=== PATIENT | male | born 1940 | race Caucasian/White ===

== ENCOUNTER 2016-10-15 15:58 | Emergency (ER) | payer MEDICARE, BC ==
[~2016-10-15 15:58] MED LIST: DULE100A PO; GLIM4TAB PO; IRBE300T46 PO; LEVEMIR SQ; METF-324 PO; ROSU10 PO
[2016-10-15 16:03] VITALS: BP 247/113; PULSE 79; RESP 16; TEMP 97.8; O2SAT 95
[2016-10-15] MEDS ORDERED: CLIN1CAP5 PO (16:25)
[2016-10-15] MEDS ORDERED: DOXY100C PO (16:25)
[2016-10-15] MEDS ORDERED: cloNIDine HCL 0.2 MG TAB PO ONE (16:30)
--- NOTE | 2016-10-15 16:35 | PD ---
HPI Chief Complaint: Skin Problem Time Seen by Provider: 16:11 Travel History International Travel<30 days: No Contact w/Intl Traveler<30days: No Traveled to known affect area: No History of Present Illness HPI This patient complains of a infected area on his back. Duration 3 days. Severity is moderate. Denies fever. No alleviating factors he's had multiple carbuncles on his back before. He has had many that resolve with medication and he is also required formal operative drainage. 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 HERNIA) Cardiac Surgery: No Ear Surgery: No Endocrine Surgery: No Eye Surgery: Yes (RIGHT CATARACT SX) Genitourinary Surgery: No Neurologic Surgery: No Oral Surgery: Yes (PARTIAL LOWER DENTURES) Pacemaker: No Thoracic Surgery: No Other Surgery: Yes (INGUINAL HERNIA REPAIR 85) Social History Alcohol Use: No Tobacco Use: Yes (1 PPD) Substance Use: No Allergies-Medications (Allergen,Severity, Reaction): Coded Allergies: Fish Containing Products (Unverified Allergy, Severe, RASH, 10/15/16) Sulfa (Sulfonamide Antibiotics) (Unverified Allergy, Severe, RASH, 10/15/16 ) diatrizoate meglumine (Unverified Allergy, Severe, HIVES, 10/15/16) gadobenic acid (Unverified Allergy, Severe, HIVES, 10/15/16) gadodiamide (Unverified Allergy, Severe, HIVES, 10/15/16) gadoteridol (Unverified Allergy, Severe, HIVES, 10/15/16) iodixanol (Unverified Allergy, Severe, HIVES, 10/15/16) iohexol (Unverified Allergy, Severe, HIVES, 10/15/16) sitagliptin (Unverified Allergy, Severe, BONE PAIN IMMEDIATELY, 10/15/16) Reported Meds & Prescriptions Reported Meds & Active Scripts Active Clindamycin (Clindamycin HCl) 150 Mg Cap 300 Mg PO Q6H Doxycycline Hyclate 100 Mg Cap 100 Mg PO BID Reported Dulera 120 Act Inh (Mometasone-Formoterol 120 Act Inh) 100-5 Mcg/Act Inh 2 Puff INH BID Metformin (Metformin HCl) 1,000 Mg Tab 1,000 Mg PO BIDPC With meals Crestor (Rosuvastatin Calcium) 10 Mg Tab 10 Mg PO DAILY Avalide (Irbesartan-Hydrochlorothiazide) 300-12.5 Mg Tab 1 Tab PO DAILY Humalog Inj (Insulin Human Lispro) 1,000 Unit/10 Ml Vial 4 Units SQ TIDAC Levemir Inj (Insulin Detemir) 1,000 unit/ 10 ML Vial 26 Units SQ DAILY Do not mix with any other Insulin. Glimepiride 4 Mg Tab 4 Mg PO BIDAC Review of Systems General / Constitutional: No: Fever Eyes: No: Visual changes HENT: No: Headaches Cardiovascular: No: Chest Pain or Discomfort Respiratory: No: Shortness of Breath Gastrointestinal: No: Abdominal Pain Genitourinary: No: Dysuria Musculoskeletal: No: Pain Skin: No Rash Neurologic: No: Weakness Psychiatric: No: Depression Endocrine: No: Polydipsia Hematologic/Lymphatic: No: Easy Bruising Physical Exam Narrative GENERAL: Well-nourished, well-developed patient in no apparent distress. SKIN: Focused skin assessment reveals no rash. Skin is warm and dry. He has a carbuncle in the middle of his back. There is an area of induration with pinpoint tiny pustules. There is some spontaneous drainage. Culture obtained. It is small and about 1.5 cm in diameter HEAD: Atraumatic. Normocephalic. EYES: Pupils equal and round. No scleral icterus. No injection or drainage. ENT: No nasal bleeding or discharge. Mucous membranes pink and moist. NECK: Trachea midline. No JVD. CARDIOVASCULAR: Regular rate and rhythm. No murmur appreciated. RESPIRATORY: No accessory muscle use. Clear to auscultation. Breath sounds equal bilaterally. GASTROINTESTINAL: Abdomen soft, non-tender, nondistended. Hepatic and splenic margins not palpable. MUSCULOSKELETAL: No obvious deformities. No clubbing. No cyanosis. No edema. NEUROLOGICAL: Awake and alert. No obvious cranial nerve deficits. Motor grossly within normal limits. Normal speech. PSYCHIATRIC: Appropriate mood and affect; insight and judgment normal. Data Data Last Documented VS Vital Signs Date Time Temp Pulse Resp B/P Pulse Ox O2 Delivery O2 Flow Rate FiO2 10/15/16 17:25 149/79 10/15/16 16:03 97.8 79 16 95 Orders Clonidine (Catapres) (10/15/16 16:30) Wound Culture And Gram Stain (10/15/16 16:22) [facility] Medical Decision Making Medical Screen Exam Complete: Yes Emergency Medical Condition: Yes Medical Record Reviewed: Yes Differential Diagnosis Carbuncle, abscess, boil Narrative Course I have reviewed the patient's electronic medical record. I don't think this requires invasive treatment at this time Should be followed closely I will start him on doxycycline and clindamycin I obtained a wound culture and Gram stain It is relatively small If initial treatment does not solve the issue he knows he may require operative treatment Patient has prominent accelerated hypertension. Multiple checks have confirmed 239 systolic I gave him a dose of clonidine and we'll reevaluate He is neurologically intact without headache or chest pain Recheck is 149 systolic Diagnosis Primary Impression: Carbuncle Additional Impression: Accelerated hypertension Additional Instructions: Check and record blood pressure daily The patient was advised to follow up with their physician and return if they worsen. Apply warm compresses Med/Other Pt SpecificInfo: Prescription(s) given Scripts Clindamycin 150 Mg [id number] Mg PO Q6H #56 CAP Ref 0 Prov:Boston Padilla MD 10/15/16 Doxycycline Hyclate 100 Mg [id number] Mg PO BID #20 CAP Ref 0 Prov:Boston Padilla MD 10/15/16 Disposition: 01 DISCHARGE HOME Condition: Stable Boston Padilla MD Oct 15, 2016 16:35
[2016-10-15] MEDS ORDERED: ROSU10 PO (16:40)
[2016-10-15] MEDS ORDERED: METF1000 PO (16:40)
[2016-10-15] MEDS ORDERED: DULE100A INH (16:40)
[2016-10-15] MEDS ORDERED: IRBE300T46 PO (16:40)
[2016-10-15] MEDS ORDERED: GLIM4TAB PO (16:40)
[2016-10-15] MEDS ORDERED: HUMALOG SQ (16:40)
[2016-10-15] MEDS ORDERED: LEVEMIR SQ (16:40)
[2016-10-15 17:25] VITALS: BP 149/79
== END 2016-10-15 17:26 | disposition home or self-care (01) ==
LOC: PHED 15:58
DX: L02.232 Carbuncle of back [any part, except buttock and flank] (principal); I10 Essential (primary) hypertension; E11.9 Type 2 diabetes mellitus without complications; F17.200 Nicotine dependence, unspecified, uncomplicated; Z79.4 Long term (current) use of insulin; Z87.09 Personal history of other diseases of the respiratory system; Z85.828 Personal history of other malignant neoplasm of skin; Z86.79 Personal history of other diseases of the circulatory system; Z87.19 Personal history of other diseases of the digestive system
CPT/HCPCS: 86403; 87070; 87205; 99284

== ENCOUNTER 2017-02-17 14:51 | Observation (INO) | payer MEDICARE, BC ==
[~2017-02-17] VITALS: Ht 177.8 cm; Wt 70.0 kg
[~2017-02-17 14:51] MED LIST changes: +CLIN150C14 PO; +DOXY100C PO; +DULE100A INH; -DULE100A PO; +HUMALOG SQ; -METF-324 PO; +METF1000 PO
[2017-02-17 14:54] VITALS: BP 221/104; PULSE 80; RESP 20; TEMP 98.4; O2SAT 97
[2017-02-17] MEDS ORDERED: AZIL40TA2 PO (15:19)
[2017-02-17 15:20] VITALS: O2SAT 99
[2017-02-17 15:21] VITALS: BP 170/81
[2017-02-17] MEDS ORDERED: SODIUM CHLORIDE 0.9% FLUSH 10 ML FLUSH IVF PRN (15:30)
[2017-02-17] MEDS ORDERED: ASPIRIN 325 MG TAB PO ONE (15:30)
[2017-02-17] MEDS ORDERED: NITROGLYCERIN 0.3 MG SL 100 TABS/BTL SL ONE (15:30)
[2017-02-17] MEDS ORDERED: hydrALAZINE HCL 20 MG/ML VIAL IV PUSH ONE (15:30)
--- NOTE | 2017-02-17 15:46 | RADRPT ---
EXAM DATE/TIME: 02/17/2017 15:32 [facility] COMPARISON: CHEST PA & LAT, October 09, 2015, 14:55. INDICATIONS : Chest pain. MEDICAL HISTORY : Hypertension. Chronic obstructive pulmonary disease. Diabetes mellitus type 2. Hepatitis. SURGICAL HISTORY : None. ENCOUNTER: Initial ACUITY: 2 days PAIN SCORE: 6/10 LOCATION: Left chest FINDINGS: A single view of the chest demonstrates the lungs to be symmetrically aerated without evidence of mas s, infiltrate or effusion. The cardiomediastinal contours are unremarkable. Osseous structures are intact. CONCLUSION: Normal examination. Ankit Westbrook MD on February 17, 2017 at 15:43 Board Certified Radiologist. This report was verified electronically.
[2017-02-17 16:00] LABS: AUTOMATED NEUTROPHIL # 8.4 TH/MM3 (1.8-7.7); BASOPHIL # 0.1 TH/MM3 (0-0.2); BASOPHIL % 0.8 % (0.0-2.0); EOSINOPHIL # 0.2 TH/MM3 (0-0.4); EOSINOPHIL % 1.4 % (0.0-4.0); HEMO FLAGS DIFF FINAL; LYMPHOCYTE # 3.8 TH/MM3 (1.0-4.8); MEAN CELL VOLUME 86.8 FL (80.0-100.0); MEAN CORPUSCULAR HEMOGLOBIN 29.7 PG (27.0-34.0); MEAN CORPUSCULAR HGB CONC 34.2 % (32.0-36.0); MONO % 7.6 % (0.0-8.0); NEUT % 62.2 % (16.0-70.0); PLATELET COUNT 290 TH/MM3 (150-450); RED BLOOD COUNT 4.84 MIL/MM3 (4.50-5.90); RED CELL DISTRIBUTION WIDTH 15.8 % (11.6-17.2); WHITE BLOOD COUNT 13.6 TH/MM3 (4.0-11.0)
[2017-02-17 16:07] LABS: APTT (PATIENT) 25.7 SEC (24.3-30.1); PROTHROMBIN TIME - PATIENT 10.3 SEC (9.8-11.6)
[2017-02-17 16:13] LABS: ANION GAP 8 MEQ/L (5-15); BICARBONATE 27.1 MEQ/L (21.0-32.0); BLOOD UREA NITROGEN 21 MG/DL (7-18); CHLORIDE 107 MEQ/L (98-107); GLOMERULAR FILTRATION RATE 47 ML/MIN (>89); MAGNESIUM 1.9 MG/DL (1.5-2.5); POTASSIUM 3.9 MEQ/L (3.5-5.1); SODIUM (NA) 142 MEQ/L (136-145)
[2017-02-17 16:21] LABS: CREATINE KINASE 74 U/L (39-308)
--- NOTE | 2017-02-17 16:43 | PD ---
HPI Chief Complaint: Chest Pain Time Seen by Provider: 15:30 Travel History International Travel<30 days: No Contact w/Intl Traveler<30days: No Traveled to known affect area: No History of Present Illness HPI 76-year-old male presents to emergency department for evaluation of chest pain. Patient initially had chest pain yesterday afternoon while washing a vehicle. He describes it as sharp and sudden in the midsternal region that radiates towards the left thoracic region. Patient states the pain is so severe he took his breath away. He set down the lawn chair yesterday afternoon for approximately 30 minutes of the pain resolved spontaneously. This morning he woke up and ate breakfast and sat down after breakfast at the computer. While he was sitting at the computer the pain started again. He said the pain this time was less in intensity than it was yesterday rating it at an 8 out of 10 versus a 10 out of 10. Patient states when the pain is present he is short of breath. Patient states he uses inhaler multiple times today due to the pain taking his breath away. The pain is reproducible and exacerbated with movement. 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 He has a history of hypertension and takes daily Edarbyclor for this BP management. He also is diabetic and has hyperlipidemia. She denies any recent fever, cough, abdominal pain, nausea, vomiting or diarrhea. Patient states he was not diaphoretic during these episodes. He denies lightheadedness or dizziness. Patient smokes a pack of cigarettes a day. He denies any alcohol or drug use. 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 HERNIA) Cardiac Surgery: No Ear Surgery: No Endocrine Surgery: No Eye Surgery: Yes (RIGHT CATARACT SX) Genitourinary Surgery: No Neurologic Surgery: No Oral Surgery: Yes (PARTIAL LOWER DENTURES) Pacemaker: No Thoracic Surgery: No Other Surgery: Yes (INGUINAL HERNIA REPAIR 85) Social History Alcohol Use: No Tobacco Use: Yes (1 PPD) Substance Use: No Allergies-Medications (Allergen,Severity, Reaction): Coded Allergies: Fish Containing Products (Unverified Allergy, Severe, RASH, 02/17/17) Sulfa (Sulfonamide Antibiotics) (Unverified Allergy, Severe, RASH, ) diatrizoate meglumine (Unverified Allergy, Severe, HIVES, 02/17/17) gadobenic acid (Unverified Allergy, Severe, HIVES, 02/17/17) gadodiamide (Unverified Allergy, Severe, HIVES, 02/17/17) gadoteridol (Unverified Allergy, Severe, HIVES, 02/17/17) iodixanol (Unverified Allergy, Severe, HIVES, 02/17/17) iohexol (Unverified Allergy, Severe, HIVES, 02/17/17) sitagliptin (Unverified Allergy, Severe, BONE PAIN IMMEDIATELY, 02/17/17) Reported Meds & Prescriptions Reported Meds & Active Scripts Active Reported Edarbyclor (Azilsartan-Chlorthalidone) 40-25 Mg Tab 1 Tab PO DAILY Dulera 120 Act Inh (Mometasone-Formoterol 120 Act Inh) 100-5 Mcg/Act Inh 2 Puff INH BID Metformin (Metformin HCl) 1,000 Mg Tab 1,000 Mg PO BIDPC With meals Crestor (Rosuvastatin Calcium) 10 Mg Tab 10 Mg PO DAILY Humalog Inj (Insulin Human Lispro) 1,000 Unit/10 Ml Vial 4 Units SQ TIDAC Levemir Inj (Insulin Detemir) 1,000 unit/ 10 ML Vial 26 Units SQ DAILY Do not mix with any other Insulin. Review of Systems Except as stated in HPI: all other systems reviewed are Neg Physical Exam Narrative GENERAL: Well-nourished, well-developed 76-year-old male patient in no acute distress. Nontoxic appearing. SKIN: Focused skin assessment warm/dry. HEAD: Atraumatic. Normocephalic. EYES: Pupils equal and round. No scleral icterus. No injection or drainage. ENT: No nasal bleeding or discharge. Mucous membranes pink and moist. NECK: Trachea midline. No JVD. CARDIOVASCULAR: Regular rate and rhythm. No murmur appreciated. RESPIRATORY: No accessory muscle use. Clear to auscultation. Breath sounds equal bilaterally. GASTROINTESTINAL: Abdomen soft, non-tender, nondistended. Hepatic and splenic margins not palpable. MUSCULOSKELETAL: No obvious deformities. No clubbing. No cyanosis. No edema. NEUROLOGICAL: Awake and alert. No obvious cranial nerve deficits. Motor grossly within normal limits. Normal speech. PSYCHIATRIC: Appropriate mood and affect; insight and judgment normal. Data Data Last Documented VS Vital Signs Date Time Temp Pulse Resp B/P (MAP) Pulse Ox O2 Delivery O2 Flow Rate FiO2 02/17/17 15:21 170/81 (110) 02/17/17 15:20 99 Room Air 02/17/17 14:54 98.4 80 20 Orders Orders Electrocardiogram (02/17/17 15:17) Basic Metabolic Panel (Bmp) (02/17/17 15:17) Ckmb (Isoenzyme) Profile (02/17/17 15:17) Complete Blood Count With Diff (02/17/17 15:17) Magnesium (Mg) (02/17/17 15:17) Prothrombin Time / Inr (Pt) (02/17/17 15:17) Act Partial Throm Time (Ptt) (02/17/17 15:17) Troponin I (02/17/17 15:17) Chest, Single Ap (02/17/17 15:17) Ecg Monitoring (02/17/17 15:17) Bilateral Bp Monitoring (02/17/17 15:17) Iv Access Insert/Monitor (02/17/17 15:17) Oximetry (02/17/17 15:17) Oxygen Administration (02/17/17 15:17) Aspirin (Aspirin) (02/17/17 15:30) Sodium Chloride 0.9% Flush (Ns Flush) (02/17/17 15:30) Nitroglycerin Sl (Nitrostat Sl) (02/17/17 15:30) Hydralazine Inj (Apresoline Inj) (02/17/17 15:30) Admit Order (Ed Use Only) (02/17/17 16:50) Labs Laboratory Tests Test 02/17/17 15:25 White Blood Count 13.6 TH/MM3 Red Blood Count 4.84 MIL/MM3 Hemoglobin 14.4 GM/DL Hematocrit 42.0 % Mean Corpuscular Volume 86.8 FL Mean Corpuscular Hemoglobin 29.7 PG Mean Corpuscular Hemoglobin Concent 34.2 % Red Cell Distribution Width 15.8 % Platelet Count 290 TH/MM3 Mean Platelet Volume 9.3 FL Neutrophils (%) (Auto) 62.2 % Lymphocytes (%) (Auto) 28.0 % Monocytes (%) (Auto) 7.6 % Eosinophils (%) (Auto) 1.4 % Basophils (%) (Auto) 0.8 % Neutrophils # (Auto) 8.4 TH/MM3 Lymphocytes # (Auto) 3.8 TH/MM3 Monocytes # (Auto) 1.0 TH/MM3 Eosinophils # (Auto) 0.2 TH/MM3 Basophils # (Auto) 0.1 TH/MM3 CBC Comment DIFF FINAL Differential Comment Prothrombin Time 10.3 SEC Prothromb Time International Ratio 1.0 RATIO Activated Partial Thromboplast Time 25.7 SEC Blood Urea Nitrogen 21 MG/DL Creatinine 1.46 MG/DL Random Glucose 168 MG/DL Calcium Level 8.9 MG/DL Magnesium Level 1.9 MG/DL Sodium Level 142 MEQ/L Potassium Level 3.9 MEQ/L Chloride Level 107 MEQ/L Carbon Dioxide Level 27.1 MEQ/L Anion Gap 8 MEQ/L Estimat Glomerular Filtration Rate 47 ML/MIN Total Creatine Kinase 74 U/L Troponin I LESS THAN 0.02 NG/ML MDM Medical Decision Making Medical Screen Exam Complete: Yes Emergency Medical Condition: Yes Differential Diagnosis Differential diagnoses include but are not limited to coronary event, muscular strain, pneumonia, arrhythmia Narrative Course Patient placed on monitor, IV obtained, blood work sent to the lab. CBC, BMP, troponin, CK-MB, magnesium, PT/INR ordered and pending. EKG ordered and pending. Chest x-ray ordered and pending. Patient was found to be extremely hypertensive 221/104, 10 mg IV hydralazine ordered. 325 mg by mouth aspirin ordered, 0.3 mg sublingual nitroglycerin ordered. CBC shows mild leukocytosis with WBCs at 13.6. BMP reflects decreased kidney functioning but otherwise no acute abnormality noted, troponin negative. PT/INR shows no acute abnormality. Chest x-ray shows normal examination. EKG shows sinus rhythm with heart rate 76. Patient's initial cardiac workup is negative. However due to his comorbidities,symptoms, clinical presentation, vital sign review and physical exam it is advantageous to admit the patient to the chest pain center for further evaluation. Patient will be admitted to the chest pain center at this time. Patient agreeable to plan of care. Diagnosis Primary Impression: Chest pain Qualified Codes: R07.9 - Chest pain, unspecified Admitting Information Admitting Physician Requests: Rama Canales Feb 17, 2017 16:43
[2017-02-17] MEDS ORDERED: ACETAMINOPHEN 500 MG CPLT PO PRN (17:45)
[2017-02-17] MEDS ORDERED: ONDANSETRON HCL 4 MG/2 ML VIAL IV PUSH PRN (17:45)
[2017-02-17] MEDS ORDERED: NITROGLYCERIN 0.4 MG SL 25 TABS/BTL SL PRN (17:45)
[2017-02-17] MEDS ORDERED: SODIUM CHLORIDE 0.9% FLUSH 10 ML FLUSH IV FLUSH SCH (21:00)
[2017-02-18] MEDS ORDERED: ASPIRIN 325 MG TAB PO SCH (09:00)
--- NOTE | 2017-02-18 23:19 | EKG ---
Date Performed: 02/17/2017 Time Performed: 15:02:13 PTAGE: 76 years EKG: Sinus rhythm INCOMPLETE RIGHT BUNDLE BRANCH BLOCK ST DEVIATION AND MODERATE T-WAVE ABNORMALITY, CONSIDER ANTEROLA TERAL ISCHEMIA ABNORMAL ECG PREVIOUS TRACING : 10/09/2015 13.26 Compared to the previous tracing, ST/T wave changes are now noted DOCTOR: Dl Parry Interpretating Date/Time 02/18/2017 23:18:04
== END 2017-02-17 17:35 | disposition left against medical advice (07) ==
LOC: NEPC 14:51 → NEDA 16:53
DX: R07.9 Chest pain, unspecified (principal); D72.829 Elevated white blood cell count, unspecified; I45.10 Unspecified right bundle-branch block; R94.31 Abnormal electrocardiogram [ECG] [EKG]; I10 Essential (primary) hypertension; E78.5 Hyperlipidemia, unspecified; E11.9 Type 2 diabetes mellitus without complications; J44.9 Chronic obstructive pulmonary disease, unspecified; K75.9 Inflammatory liver disease, unspecified; I69.398 Other sequelae of cerebral infarction; R53.1 Weakness; F17.210 Nicotine dependence, cigarettes, uncomplicated; Z85.828 Personal history of other malignant neoplasm of skin; Z79.899 Other long term (current) drug therapy; Z79.84 Long term (current) use of oral hypoglycemic drugs
CPT/HCPCS: 71010; 80048; 82550; 83735; 84484; 85025; 85610; 85730; 93005; 99285; G0378; J0360